=== PATIENT | male | born 2000 | race Caucasian/White ===

== ENCOUNTER 2022-03-05 15:31 | Outpatient (CLI) | payer BC, SELFPAY ==
[2022-03-05 16:02] LABS: Hematocrit 51.7 % (42.0-52.0); Hemoglobin 17.5 g/dL (14.0-18.0); Mean Corpuscular HGB Conc 33.8 g/dl (32-36); Mean Corpuscular Hemoglobin 30.5 pg (26-34); Mean Corpuscular Volume 90.2 fl (80-100); Mean Platelet Volume 9.4 fl (7.4-10.4); Platelet Count Result 266 k/mm3 (150-375); Red Blood Count 5.73 M/mm3 (4.6-6.20); Red Cell Distribution Width 12.2 % (11.5-14.5); White Blood Count 8.4 K/mm3 (4.5-10.0)
== END 2022-03-05 15:32 | disposition home or self-care (01) ==
LOC: ANHLAB 15:33
PROVIDERS: PCP Family Medicine; Visit Provider Nurse Practitioner Family
DX: R71.8 Other abnormality of red blood cells (principal)
CPT/HCPCS: 36415; 85027

== ENCOUNTER 2023-02-26 09:27 | Emergency (ER) | payer BC, SELFPAY ==
--- NOTE | ~2023-02-26 | XR_ITS ---
Clinical Indication: Chest pain PA and lateral views of the chest: Comparison: None Findings: The lungs are clear, without evidence of focal consolidation or pleural effusion. Cardiome diastinal silhouette is within normal limits. Bones and soft tissues are unremarkable. Impression: Normal chest. Reviewed, dictated and finalized at location . Impression: Normal chest.
--- NOTE | 2023-02-26 09:28 | ECG_ITS ---
Measurements Intervals [place] Rate: 78 P: 35 MD: 140 QRS: 20 QRSD: 92 T: 63 QT: 367 QTc: 419 Interpretive Statements SINUS RHYTHM NONSPECIFIC T-WAVE ABNORMALITY BORDERLINE ECG NO PREVIOUS ECG AVAILABLE FOR COMPARISON Electronically Signed On 02-26-2023 17:16:48 CDT by Dez Fitzpatrick M.D.
[2023-02-26 09:35] VITALS: BP 146/94; PULSE 82; RESP 15; TEMP 36.9; O2SAT 100
[2023-02-26 09:51] LABS: Basophils Absolute Auto 0.1 K/mm3 (0.0-0.1); Basophils Percent Auto 0.9 % (0.2-1.2); Eosinophils Absolute Auto 0.2 K/mm3 (0-0.3); Eosinophils Percent Auto 2.7 % (0-4.4); Hematocrit 52.3 % (42.0-52.0); Hemoglobin 17.4 g/dL (14.0-18.0); Immature Granulocyte Absolute 0.03 K/mm3 (0.00-0.031); Immature Granulocyte Percent A 0.4 % (0-0.5); Lymphocytes Absolute Auto 1.78 K/mm3 (0.9-3.2); Lymphocytes Percent Auto 26.3 % (18.3-44.2); Mean Corpuscular HGB Conc 33.3 g/dl (32-36); Mean Corpuscular Hemoglobin 29.9 pg (26-34); Mean Platelet Volume 9.2 fl (7.4-10.4); Monocytes Absolute Auto 0.7 K/mm3 (0.1-0.6); Monocytes Percent Auto 10.4 % (2.6-8.5); Neutrophils Percent Auto 59.3 % (45.5-73.1); Platelet Count Result 278 k/mm3 (150-375); Red Blood Count 5.81 M/mm3 (4.6-6.20); Red Cell Distribution Width 12.6 % (11.5-14.5); White Blood Count 6.8 K/mm3 (4.5-10.0)
[2023-02-26 10:02] LABS: Alanine Aminotransferase 47 U/L (6-50); Alkaline Phosphatase 111 U/L (38-126); Anion Gap 11 mmol/L (8-16); Aspartate Amino Transferase 33 U/L (17-59); Bilirubin,Total 1.1 mg/dL (0.2-1.3); Blood Urea Nitrogen 13 mg/dL (9-20); Calcium 9.3 mg/dL (8.4-10.2); Carbon Dioxide 23 mmol/L (22-30); Chloride 105 mmol/L (98-107); Estimated CRCL calculation 191 ml/min; Estimated Glomerular Filt Rate > 60; Glucose 94 mg/dL (65-110); Lipase 49 U/L (23-300); Potassium 3.8 mmol/L (3.4-5.0); Sodium 139 mmol/L (137-145)
[2023-02-26 10:04] LABS: Prothrombin Time 13.4 Seconds (11.1-14.7)
[2023-02-26 10:05] LABS: Partial Thromboplastin Time 28.3 SECONDS (22.3-36.8)
[2023-02-26 10:12] LABS: Troponin I < 0.012 ng/mL (0.000-0.034)
[2023-02-26 10:55] VITALS: PULSE 72
[2023-02-26 10:56] VITALS: BP 139/80; PULSE 76; RESP 17; O2SAT 100
[2023-02-26 12:15] LABS: D Dimer < 0.27 ug/mL (<0.48)
--- NOTE | 2023-02-26 12:51 | ED.CHESTPAIN ---
HPI - Chest Pain General Chief Complaint: Chest Pain Stated Complaint: Chest Pain Time Seen by Provider: 02/26/23 10:58 History of Present Illness HPI narrative: 22-year-old male present emerged department for evaluation of intermittent epigastric chest pain that does radiate into his left shoulder. Patient states his symptoms started on Thursday morning when he woke up and were intermittent throughout the day. Patient states he does occur with exertion. Patient states symptoms occurred Thursday morning again and then heard today to a minor extent. Patient does report recent weight gain and does have history of hypertension but denies high cholesterol and diabetes. Patient has no previous cardiac history. Patient denies any prior history of PE or DVT. Related Data Allergies Allergy/AdvReac Type Severity Reaction Status Date / Time penicillin G Allergy Mild Unknown Verified 02/26/23 10:56 Review of Systems Review of Systems: All systems reviewed & are unremarkable except as noted in HPI and below PMFSH Past Medical History Medical History BMI greater than 40 Dietary counseling and surveillance (07/24/17) Elevated liver enzymes Elevated red blood cell count Fungal infection of skin Morbid (severe) obesity due to excess calories Muscle cramping Routine physical examination Strep pharyngitis Vitamin D deficiency Family History Family History Grandparent Family history of type 2 diabetes mellitus Father Hypertension Mother PCOS (polycystic ovarian syndrome) ADD (attention deficit disorder) Sibling Hypertension Social History Social History Smoking status: Never smoker Second hand tobacco smoke exposure: Yes Alcohol intake: current Substance use: never Substance use type: does not use Lack of Transportation: No Lack of Food: Never True Current Housing: I Have Housing Concerned About Future Housing: No Difficulty Paying Gas/Electric Bills: No Difficulty Paying for Meds: No Currently Unemployed: No Education: Master's Degree or Higher Difficulty w/ Childcare or Family Care: No Living arrangements: with family Occupation/Education: occupation 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 Gender identity (if verbalized by the patient): Male Exam Narrative: APPEARANCE: Well appearing, no pain, no distress, well-nourished. HEAD: normocephalic, atraumatic. EYES: PERRLA/EOMI, conjunctivae clear. NOSE: Normal no drainage NECK: Supple. No adenopathy, no masses. RESPIRATORY: Airway patent, respirations nonlabored. Clear to auscultation bilaterally, no rales, rhonchi, wheezing. CARDIOVASCULAR: Regular rate and rhythm without murmurs rubs or gallops. ABDOMINAL: Soft, nontender, nondistended, normal bowel sounds MUSCULOSKELETAL: Moves all extremities. Strength/ROM intact, No edema, No calf tenderness. NEURO: Alert. Cranial nerves II through XII intact. Grossly intact Course Course Emergency Course: 22-year-old male present emerged department for evaluation of intermittent chest pain. Patient is afebrile with leukocytosis and a stable hemoglobin. Patient had negative serial troponins. Patient's D-dimer was negative. Chest x-ray showed no acute cardiopulmonary normality. Patient's EKG showed normal sinus rhythm. Suspect GI etiology. Patient states he did have some increased alcohol prior to the symptoms starting. Patient was recommended to have close follow-up with his primary care physician for additional outpatient cardiac testing but patient was also encouraged to take Prilosec for 14 days, stop NSAIDs and decrease his alcohol consumption. Patient was updated results of his work-up. Patient was comfortable plan for discharge and close follow-up. Vital Signs Vital signs: V
[2023-02-26 13:33] LABS: Troponin I < 0.012 ng/mL (0.000-0.034)
[2023-02-26 13:38] VITALS: BP 130/78; PULSE 85; RESP 19; O2SAT 100
== END 2023-02-26 14:08 | disposition home or self-care (01) ==
PROVIDERS: Emergency Provider Emergency Medicine; PCP Family Medicine
DX: R07.9 Chest pain, unspecified (principal); E55.9 Vitamin D deficiency, unspecified; E66.01 Morbid (severe) obesity due to excess calories; Z68.41 Body mass index [BMI] 40.0-44.9, adult; Z77.22 Contact with and (suspected) exposure to environmental tobacco smoke (acute) (chronic); R94.31 Abnormal electrocardiogram [ECG] [EKG]
CPT/HCPCS: 36415; 71046; 80053; 83690; 84484; 85025; 85380; 85610; 85730; 93005; 99284

== ENCOUNTER 2023-11-03 06:35 | Outpatient (CLI) | payer BC, SELFPAY ==
--- NOTE | ~2023-11-03 | CT_ITS ---
CT of the Abdomen and Pelvis: Indication: Abdominal pain Technique: 2.5 mm axial scans were obtained through the abdomen and pelvis following intravenous adm inistration of 100 cc of Omnipaque 350. Dose reduction technique was used on this scan by utilizing a utomated exposure control and iterative reconstruction technique. The dose-length product (DLP) was 1 679.22 mGy-cm. Findings: Scans through the lung bases are unremarkable. The liver, spleen, pancreas, gallbladder, adrenals and kidneys are within normal limits. No evidence of aortic aneurysm. No bowel obstruction or bowel wall thickening. There is no evidence to suggest acute appendicitis. Sh otty right lower quadrant lymph nodes are present. Images through the pelvis were performed. Urinary bladder unremarkable. No pelvic mass seen. No ascit es. Impression: Shotty right lower quadrant lymph nodes could reflect mesenteric adenitis. No other significant findings. Reviewed, dictated and finalized at [facility]. Impression: Shotty right lower quadrant lymph nodes could reflect mesenteric adenitis. No other significant findings.
[2023-11-03 07:11] LABS: Estimated Glomerular Filt Rate > 60
== END 2023-11-03 06:36 | disposition home or self-care (01) ==
PROVIDERS: PCP Family Medicine
DX: R59.0 Localized enlarged lymph nodes (principal)
CPT/HCPCS: 74177; Q9967

== ENCOUNTER 2024-10-15 07:59 | Outpatient (CLI) | payer BC, SELFPAY ==
--- NOTE | ~2024-10-15 | US_ITS ---
EXAMINATION: US scrotum doppler DATE: 10/15/2024 08:22 INDICATION: Epididymitis and third round of antibiotics TECHNIQUE: Testicular sonogram utilizing grayscale and Doppler COMPARISON: None. FINDINGS: The right testis measures 4.5 x 2.1 x 2.7 cm. The left testis measures 4.2 x 2.3 x 2.4 cm. Symmetric normal grayscale appearance to both testes. There is normal vascular flow to both testes. The right e pididymis is normal with normal vascular flow. The left epididymis is normal with normal vascular tariq w. There is no varicocele or hydrocele. IMPRESSION: 1. Normal scrotal ultrasound. Reviewed, dictated and finalized at location A.
== END 2024-10-15 08:00 | disposition home or self-care (01) ==
LOC: MICIMG 07:59
PROVIDERS: PCP Family Medicine; Visit Provider Nurse Practitioner Adult Health
DX: N45.1 Epididymitis (principal)
CPT/HCPCS: 76870; 93976

== ENCOUNTER 2025-02-21 11:00 | Outpatient (CLI) | payer OTHER, SELFPAY ==
--- NOTE | ~2025-02-21 | US_ITS ---
EXAMINATION: US abdomen complete, 02/21/2025 11:02 CDT HISTORY: R10.11 - Right upper quadrant pain COMPARISON: None Technique: Peralta-scale and color Doppler images were obtained. Findings: LIVER: Moderate increased echogenicity of the liver. . GALLBLADDER/BILIARY: Unremarkable.No cholelithiais, wall thickening or pericholecystic fluid. No biliary dilatation. CBD 3.2 mm. [place] sign negative. PANCREAS: Unremarkable. SPLEEN: Unremarkable, no splenomegaly. KIDNEYS: Right Kidney: Right kidney 11.4 x 6.8 x 6.6 cm. Left Kidney: Left kidney 12.1 x 7.2 x 4.7 cm. AORTA: Normal caliber aorta. IVC: Unremarkable. FREE FLUID: None. Impression: 1. No acute process. 2. Moderate hepatic steatosis Reviewed, dictated and finalized at location P. Impression: 1. No acute process. 2. Moderate hepatic steatosis
== END 2025-02-21 11:01 | disposition home or self-care (01) ==
LOC: MICIMG 11:01
PROVIDERS: PCP Family Medicine; Visit Provider Nurse Practitioner Family
DX: K76.0 Fatty (change of) liver, not elsewhere classified (principal)
CPT/HCPCS: 76700